=== PATIENT | female | born 1945 | race Caucasian/White ===

== ENCOUNTER → 2017-04-06 | Outpatient (CLI) | payer OTHER ==
[~2017-04-06] VITALS: Ht 162.6 cm; Wt 70.0 kg
[~2017-04-06] MED LIST: CALCIUM 600 +1 EAC1 PO; LEVO-T88 MCG PO; TURMERIC COMPL1 EACH PO
[2017-04-06 09:05] VITALS: BP 163/76
== END | disposition home or self-care (01) ==
LOC: IVINF 03-30 15:00
DX: M81.0 Age-related osteoporosis without current pathological fracture (principal)
CPT/HCPCS: 96365; J3489

== ENCOUNTER 2017-08-31 21:24 | Observation (INO) | payer OTHER ==
[~2017-08-31] VITALS: Ht 162.6 cm; Wt 67.7 kg
[2017-08-31 22:19] LABS: HEMATOCRIT 40.7 % (36.0-46.0); MCHC 34.4 G/DL (30.0-36.0); MCV 87.2 FL (83-99); PLATELET COUNT 377 K/uL (156-360); RBC DIS.WIDTH-CV 13.2 % (11.8-14.6); RBC DIS.WIDTH-SD 41.7 % (39-53); RED BLOOD COUNT 4.67 M/uL (3.80-5.20); WHITE BLOOD COUNT 18.9 K/uL (4.1-10.2)
[2017-08-31 22:28] LABS: CHLORIDE 97 mEq/L (99-109); POTASSIUM 3.4 mEq/L (3.7-5.4); SODIUM 139 mEq/L (136-147)
[2017-08-31 22:34] LABS: GLUCOSE 171 mg/dL (70-99)
[2017-08-31 22:38] LABS: GFR ESTIMATE (CALCULATED) 58 mL/min/
[2017-08-31 22:39] LABS: TROP-I INTERPRETATION NEGATIVE; TROPONIN-I 0.01 ng/mL (0.0-0.30); UREA NITROGEN (BUN) 27 mg/dL (9-23)
[2017-08-31 22:49] LABS: APPEARANCE CLEAR ((CLEAR)); BILIRUBIN NEGATIVE; BLOOD NEGATIVE; COLOR COLORLESS ((YELLOW)); GLUCOSE (STRIP) NEGATIVE; KETONES NEGATIVE; LEUKOCYTES TRACE; NITRITE NEGATIVE; PROTEIN (STRIP) NEGATIVE; SPECIFIC GRAVITY 1.008 (1.000-1.030); UROBILINOGEN 0.2 MG/DL (0.2-1.0)
[2017-08-31 22:51] LABS: ERTH.SED.RATE 62 MM/HR (0-30)
[2017-08-31 23:06] LABS: BACTERIA NONE SEEN /HPF; EPITHELIAL CELLS RARE /HPF; MUCUS NONE SEEN /LPF; RED BLOOD CELLS 0-5 /HPF (0-5); UCUL ADDED? NO; WHITE BLOOD CELLS 0-5 /HPF (0-5)
[2017-08-31 23:10] LABS: C-REACTIVE PROTEIN 42.4 MG/L (0-10)
[2017-09-01] MEDS ORDERED: ADVIL,NUPRIN,M200 MG PO (01:49)
[2017-09-01] MEDS ORDERED: FUROSEMIDE40 MG PO (01:50)
[2017-09-01] MEDS ORDERED: PREDNISONE20 MG PO (01:50)
[2017-09-01 04:40] VITALS: BP 109/55
[2017-09-01 07:11] LABS: HEMATOCRIT 39.3 % (36.0-46.0); MCH 28.8 PG (29.0-34.0); MCHC 33.1 G/DL (30.0-36.0); MCV 87.1 FL (83-99); PLATELET COUNT 377 K/uL (156-360); RBC DIS.WIDTH-CV 13.1 % (11.8-14.6); RED BLOOD COUNT 4.51 M/uL (3.80-5.20); WHITE BLOOD COUNT 11.1 K/uL (4.1-10.2)
[2017-09-01 07:28] LABS: TROP-I INTERPRETATION NEGATIVE; TROPONIN-I < 0.01 ng/mL (0.0-0.30)
[2017-09-01 08:00] LABS: ALKALINE PHOSPHATASE 53 IU/L (3-129); ALT (GPT) 14 IU/L (3-49); AST (GOT) 10 IU/L (2-34); CHLORIDE 103 MEQ/L (99-109); CREATININE 0.9 MG/DL (0.6-1.3); GFR ESTIMATE (CALCULATED) > 59 mL/min/; GLUCOSE 142 mg/dL (70-99); SODIUM 143 MEQ/L (136-147); TOTAL BILIRUBIN 0.4 MG/DL (0.0-1.0); TOTAL PROTEIN 5.6 G/DL (6.4-8.3); UREA NITROGEN (BUN) 26 mg/dL (9-23)
[2017-09-01 08:01] LABS: POTASSIUM 4.3 MEQ/L (3.7-5.4)
[2017-09-01 08:12] LABS: THYROTROPIN (TSH) 0.68 MIU/L (0.4-5.5)
[2017-09-01 10:46] LABS: TROP-I INTERPRETATION NEGATIVE; TROPONIN-I < 0.01 ng/mL (0.0-0.30)
[2017-09-01 12:00] VITALS: BP 110/73
[2017-09-01 16:32] VITALS: BP 113/81
== END 2017-09-01 17:58 | disposition home or self-care (01) ==
LOC: EME 21:24 → ENPENDDIS 09-01 → EDOF 09-01 03:42 → 4SOUTH 09-01 03:42 → EDOF 09-01 03:42 → ENRESERV 09-01 03:48 → 4SOUTH 09-01 04:30
PROVIDERS: Emergency Medicine; Internal Medicine
PROC: B246ZZZ Ultrasonography of Right and Left Heart (ICD-10-PCS; principal; 2017-09-01)
DX: R55 Syncope and collapse (principal); E87.6 Hypokalemia; R60.0 Localized edema; R73.9 Hyperglycemia, unspecified; I70.0 Atherosclerosis of aorta; I08.3 Combined rheumatic disorders of mitral, aortic and tricuspid valves; E03.9 Hypothyroidism, unspecified; M81.0 Age-related osteoporosis without current pathological fracture; E78.5 Hyperlipidemia, unspecified; Z82.49 Family history of ischemic heart disease and other diseases of the circulatory system; Z80.8 Family history of malignant neoplasm of other organs or systems; Z83.71 Family history of colonic polyps; Z88.1 Allergy status to other antibiotic agents; Z79.52 Long term (current) use of systemic steroids
CPT/HCPCS: 71045; 80048; 80053; 81003; 83036; 84443; 84484; 85027; 85651; 86140; 93005; 93306; 99281; 99284; G0378; G8978 GP CH; G8979 GP CH; G8980 GP CH; G8987 GO CH; G8988 GO CH; G8989 GO CH; J1100; J1644; J1885; J2930; J7030